=== PATIENT | female | born 1955 | race Caucasian/White ===

== ENCOUNTER 2022-07-27 09:18 | Emergency (ER) | payer BC, OTHER ==
[2022-07-27 09:25] VITALS: BP 122/65; PULSE 67; RESP 18; TEMP 97.8; BMI 26.5
== END 2022-07-27 10:59 | disposition home or self-care (01) ==
LOC: FER 09:18
DX: S00.03XA Contusion of scalp, initial encounter (principal); W00.0XXA Fall on same level due to ice and snow, initial encounter
CPT/HCPCS: 70450-TC; 72125-TC; 99284-25